=== PATIENT | female | born 1985 | race American Indian/Alaskan Native ===

== ENCOUNTER 2017-12-02 05:50 | Inpatient (IN) | payer MEDICAID ==
[2017-12-02] MEDS ORDERED: STADOL IV PRN (06:22)
[2017-12-02] MEDS ORDERED: ePHEDrine SULFATE IV PRN ×2 (06:22→10:19)
[2017-12-02] MEDS ORDERED: BRETHINE IVP PRN (06:22)
[2017-12-02] MEDS ORDERED: POLYCILLIN/NS 2 GM/100 ML 2 GM/100 ML BAG IV ONE (06:22)
[2017-12-02] MEDS ORDERED: MINERAL OIL PO PRN (06:22)
[2017-12-02] MEDS ORDERED: BRETHINE SUB-Q PRN (06:22)
[2017-12-02] MEDS ORDERED: XYLOCAINE 2% INFILTRATI ONE ×2 (06:22→17:53)
[2017-12-02] MEDS ORDERED: ZOFRAN IV PRN ×2 (06:23→20:26)
[2017-12-02] MEDS ORDERED: LACTATED RINGERS 1,000 ML ONE (06:26)
[2017-12-02] MEDS ORDERED: PITOCin/NS 20 UNIT/1000ML DRIP 20 UNITS/1,000 ML BAG IV SCH (07:00)
[2017-12-02] MEDS: LACTATED RINGERS 1,000 ML IV SCH ×2 (07:18→16:38)
[2017-12-02 07:21] LABS: Hematocrit 31.7 % (30.3-42.9); Hemoglobin 10.2 gm/dl (10.1-14.3); Mean Corpuscular HGB Conc 32 % (30-34); Mean Corpuscular Hemoglobin 28 pg (28-32); Mean Corpuscular Volume 89 fl (79-97); Platelet Count 182 K/mm3 (140-440); Red Blood Count 3.58 M/mm3 (3.65-5.03); Red Cell Distribution Width 15.2 % (13.2-15.2)
--- NOTE | 2017-12-02 10:18 | Anesthesia Consultation ---
Anesthesia Consult and Med Hx Date of service: 12/02/17 - Airway Anesthetic Teeth Evaluation: Good ROM Head & Neck: Adequate Mental/Hyoid Distance: Adequate Mallampati Class: Class II Intubation Access Assessment: Probably Good - Pre-Operative Health Status ASA Pre-Surgery Classification: ASA2 Proposed Anesthetic Plan: Epidural, Spinal - Pulmonary Hx Asthma: No COPD: No Hx Pneumonia: No - Cardiovascular System Hx Hypertension: No - Central Nervous System Hx Seizures: No Hx Psychiatric Problems: No - Endocrine Hx Renal Disease: No Hx End Stage Renal Disease: No Hx Hypothyroidism: No Hx Hyperthyroidism: No - Hematic Hx Anemia: No Hx Sickle Cell Disease: No - Other Systems Hx Alcohol Use: No
[2017-12-02] MEDS ORDERED: NARCAN 2 MG/2 ML IV PRN (10:19)
[2017-12-02] MEDS ORDERED: fentaNYL-BUPIV 2 MCG/ML-0.125% 200 MCG/100 ML BAG EPIDURAL SCH (11:00)
[2017-12-02] MEDS: AMPICILLIN/NS 1 GM/50 ML 1 GM/50 ML BAG IV SCH ×2 (12:15→16:39)
[2017-12-02] MEDS ORDERED: PITOCin/NS 30 UNIT/500ML 30 UNITS/500 ML BAG IV SCH (18:00)
--- NOTE | 2017-12-02 19:40 | History and Physical Report ---
History of Present Illness Date of examination: 12/02/17 Date of admission: 12/02/17 06:32 Chief complaint: I'm having contractions History of present illness: Patient is a 32 year old who presents with complaint of regular contractions at 40.5 weeks with EDC 11/27/2017. Patient's course was compliicated by late presentation to care and in consistent care. All labs have been normal. Past History Past Medical History: no pertinent history Past Surgical History: no surgical history PERSONNEL OFFICER History: herpes Family/Genetic History: none Social history: single - Obstetrical History Expected Date of Delivery: 11/27/17 Actual Gestation: 40 Week(s) 5 Day(s) : 2 Number of Living Children: 1 Medications and Allergies Allergies Allergy/AdvReac Type Severity Reaction Status Date / Time No Known Allergies Allergy Unverified 12/02/17 06:02 Home Medications Medication Instructions Recorded Confirmed Last Taken Type No Known Home Medications [No 12/02/17 12/02/17 Unknown History Reported Home Medications] Active Meds: Active Medications Butorphanol Tartrate (Stadol) 2 mg IV Q2H PRN PRN Reason: Pain , Severe (7-10) Last Admin: 12/02/17 07:17 Dose: 2 mg Ephedrine Sulfate (Ephedrine Sulfate) 10 mg IV Q2M PRN PRN Reason: Hypotension Ephedrine Sulfate (Ephedrine Sulfate) 10 mg IV Q2M PRN PRN Reason: Hypotension Ampicillin Sodium (Ampicillin/Ns 1 Gm/50 Ml) 1 gm in 50 mls @ 100 mls/hr IV Q4HR STONE; Protocol Last Admin: 12/02/17 16:39 Dose: 100 mls/hr Lactated Ringer's (Lactated Ringers) 1,000 mls @ 125 mls/hr IV DIRECT STONE Last Admin: 12/02/17 16:38 Dose: 125 mls/hr Oxytocin/Sodium Chloride (Pitocin/Ns 20 Unit/1000ml Drip) 20 units in 1,000 mls @ 125 mls/hr IV DIRECT STONE Fentanyl/Bupivacaine/Sodium Chlor (Fentanyl-Bupiv 2 Mcg/Ml-0.125%) 200 mcg in 100 mls @ 12 mls/hr EPIDURAL TITR STONE; Protocol Last Admin: 12/02/17 11:24 Dose: 12 mls/hr Oxytocin/Sodium Chloride (Pitocin/Ns 30 Unit/500ml) 30 units in 500 mls @ 4 mls /hr IV TITR STONE; Protocol Last Admin: 12/02/17 18:03 Dose: 4 ml/hr, 4 mls/hr Mineral Oil (Mineral Oil) 30 ml PO QHS PRN PRN Reason: Constipation Naloxone HCl (Narcan 2 Mg/2 Ml) 0.2 mg IV Q5M PRN PRN Reason: Respiratory sedation Ondansetron HCl (Zofran) 4 mg IV Q8H PRN PRN Reason: Nausea And Vomiting Terbutaline Sulfate (Brethine) 0.25 mg SUB-Q ONCE PRN PRN Reason: Hyperstimulation/Hypertonicity Terbutaline Sulfate (Brethine) 0.25 mg IVP ONCE PRN PRN Reason: Hyperstimulation/Hypertonicity Review of Systems All systems: negative Genitourinary: contractions - Vital Signs Vital signs: Vital Signs Temp Pulse Resp BP 98.5 F 95 H 20 109/60 12/02/17 05:57 12/02/17 05:57 12/02/17 05:57 12/02/17 05:57 Temp Pulse Resp BP Pulse Ox 98.4 F 122 H 20 122/63 86 12/02/17 14:09 12/02/17 19:21 12/02/17 05:57 12/02/17 18:51 12/02/17 19:21 - Physical Exam Breasts: Cardiovascular: Regular rate, Normal S1, Normal S2 Lungs: Positive: Clear to auscultation, Normal air movement Abdomen: Positive: normal appearance, soft, normal bowel sounds. Negative: distention, tenderness Vulva: both: normal Vagina: Positive: normal moisture. Negative: discharge Cervix: Negative: lesion, discharge Uterus: Positive: normal size, normal contour Adnexa: both: normal Anus/Rectum: Positive: normal perianal skin, heme negative. Negative: rectal mass, hemorrhoids Extremities: Deep Tendon Reflex Grade: Normal +2 - Obstetrical Cervical Dilatation: 4 Cervical Effacement Percentage: 80 Uterine Contraction Frequency (min): 5 Uterine Contraction Pattern: Regular Uterine Contraction Intensity: Moderate Results Result Diagrams: 12/02/17 06:20 Abnormal lab results 12/02/17 Range/Units 06:20 RBC 3.58 L (3.65-5.03) M/mm3 All other labs normal. Assessment and Plan IUP at 40.5 weeks in active labor. Admit for same. Treat for GBS unavailable at this time. Anticipate .
--- NOTE | 2017-12-02 19:44 | Procedure Note ---
OB Delivery Note - Delivery Date of Delivery: 12/02/17 Surgeon: KACI HUDSON Estimated blood loss: 200cc - Vaginal Delivery presentation: vertex Delivery position: OA Intrapartum events: meconium Delivery induction: none Delivery augmentation: pitocin Delivery monitor: external FHT, external uterine Route of delivery: Delivery placenta: spontaneous Delivery cord: 3 umbilical vessels Episiotomy: none Delivery laceration: 2nd degree Delivery repair: chromic Anesthesia: epidural Delivery comments: Viable male delivered over an intact perineum. was placed on maternal abdomen and bulb suctioned with NICU personnel present. He had spontaneous cry and appeared vigorous. The Apgars were 8 and 9, weight was 7 lbs. 9 oz. The cord was clamped and cut when finished pulsing. Placenta was delivered spontaneously and intact. Second-degree laceration was repaired with 2-0 chromic. There was excellent hemostasis. The patient tolerated the procedure well. - Infant A at 1 minute: 8 at 5 minutes: 9 Gender: Male (7 pounds 9 ounces)
[2017-12-02] MEDS ORDERED: SODIUM CHLORIDE FLUSH SYRINGE 10 ML IV NR (20:26)
[2017-12-02] MEDS ORDERED: DULCOLAX PR PRN (20:26)
[2017-12-02] MEDS ORDERED: PHENERGAN PR PRN (20:26)
[2017-12-02] MEDS ORDERED: BENADRYL PO PRN (20:26)
[2017-12-02] MEDS ORDERED: TUCKS PAD TP PRN (20:26)
[2017-12-02] MEDS ORDERED: TYLENOL PO PRN (20:26)
[2017-12-02] MEDS ORDERED: PHENERGAN PO PRN (20:26)
[2017-12-02] MEDS ORDERED: MILK OF MAGNESIA PO PRN (20:26)
[2017-12-02] MEDS ORDERED: LANSINOH TP PRN (20:26)
[2017-12-02] MEDS: NORCO 5/325 PO PRN (20:57)
[2017-12-02] MEDS: MOTRIN PO SCH (23:20)
[2017-12-03] MEDS: NORCO 5/325 PO PRN ×2 (05:08→14:50)
[2017-12-03] MEDS: MOTRIN PO SCH ×2 (06:18→18:49)
[2017-12-03 08:16] LABS: Hematocrit 29.5 % (30.3-42.9); Hemoglobin 9.6 gm/dl (10.1-14.3)
--- NOTE | 2017-12-03 17:56 | Progress Note ---
Assessment and Plan PPD 1 s/p . Doing well. Patient is requesting discharge on this evening at the 24 hour jorden. Subjective - Subjective Date of service: 12/03/17 Interval history: Patient is a 32 year old who presents with complaint of regular contractions at 40.5 weeks with EDC 11/27/2017. Patient's course was compliicated by late presentation to care and in consistent care. All labs have been normal. Patient reports: appetite normal, voiding normally, pain well controlled, ambulating normally : doing well Objective - Vital Signs Latest vital signs: Vital Signs Temp Pulse Resp BP BP Pulse Ox 12/03/17 16:23 98.8 F 70 20 111/77 98 12/03/17 12:34 98.7 F 82 20 102/60 100 12/03/17 08:00 98.2 F 89 20 109/53 100 12/03/17 04:00 98.6 F 88 20 116/63 12/02/17 21:40 98.9 F 79 20 104/57 12/02/17 21:00 74 99 12/02/17 20:59 78 125/85 12/02/17 20:57 18 12/02/17 20:55 88 99 12/02/17 20:50 87 100 12/02/17 20:37 75 123/73 12/02/17 20:23 83 121/58 12/02/17 19:58 108 H 100 12/02/17 19:53 83 124/71 100 12/02/17 19:50 107 H 151/70 12/02/17 19:43 97 H 141/68 12/02/17 19:40 99.6 F 20 12/02/17 19:21 122 H 86 12/02/17 19:16 103 H 100 12/02/17 19:12 29 L 78 L 12/02/17 19:11 91 H 99 12/02/17 19:06 101 H 100 12/02/17 19:05 82 89 12/02/17 19:01 100 H 99 12/02/17 18:56 100 H 100 12/02/17 18:51 95 H 122/63 100 12/02/17 18:46 107 H 100 12/02/17 18:41 100 H 73 L 12/02/17 18:36 107 H 100 12/02/17 18:31 101 H 100 07/31/18 18:26 116 H 100 12/02/17 18:21 105 H 100 Intake and Output 12/03/17 12/03/17 12/03/17 06:59 14:59 22:59 Intake Total 840 720 Output Total 600 1100 Balance 240 -380 Intake: Oral 840 720 Output: Urine 600 1100 Void 600 1100 Other: Total, Intake Amount 360 240 Total, Output Amount 600 500 # Voids Void 1 1 - Exam Breasts: Present: deferred Cardiovascular: Present: Regular rate, Normal S1, Normal S2 Abdomen: Present: normal appearance, soft, normal bowel sounds Vulva: both: normal Uterus: Present: normal, fundal height below umbilicus Extremities: Present: normal - Labs Labs: Abnormal lab results 12/03/17 Range/Units 07:49 Hgb 9.6 L (10.1-14.3) gm/dl Hct 29.5 L (30.3-42.9) %
--- NOTE | 2017-12-03 17:59 | Discharge Summary ---
Providers - Providers Date of Admission: 12/02/17 06:32 Date of discharge: 12/03/17 Attending physician: KACI HUDSON Primary care physician: KACI HUDSON Hospitalization Reason for admission: active labor Delivery: Laceration: none complications: none Discharge diagnosis: IUP at term delivered [place] baby: male Condition at discharge: Good Disposition: DC-01 TO HOME OR SELFCARE Plan - Discharge Medications Prescriptions: HYDROcodone/APAP 5-325 [[place] 5-325 mg TAB] 2 each PO Q6H PRN #20 tablet PRN Reason: Pain, Moderate (4-6) Ibuprofen [Motrin 600 MG tab] 600 mg PO Q6H #40 tablet - Provider Discharge Summary Activity: routine, no sex for 6 weeks, no heavy lifting 4 weeks, no strenuous exercise Diet: routine Instructions: routine Additional instructions: [] Smoking cessation referral if applicable(refer to patient education folder for contact #) [] Refer to [facility] Booklet Call your doctor immediately for: * Fever > 100.5 * Heavy vaginal bleeding ( >1 pad per hour) * Severe persistent headache * Shortness of breath * Reddened, hot, painful area to leg or breast * Drainage or odor from incision. * Keep incision clean and dry at all times and follow doctor's instructions regarding bathing/showering - Follow up plan Follow up: KACI HUDSON MD [Primary Care Provider] - 6 Weeks
[2017-12-03 22:59] VITALS: BP 107/61
== END 2017-12-03 22:25 | disposition home or self-care (01) | DRG 774 ==
LOC: TRG 05:50 → LD 06:32 → OB 22:04
PROVIDERS: ADMIT Obstetrics & Gynecology; ATTEND Obstetrics & Gynecology
PROC: 10E0XZZ Delivery of Products of Conception, External Approach (ICD-10-PCS; principal; 2017-12-02)
PROC: 0KQM0ZZ Repair Perineum Muscle, Open Approach (ICD-10-PCS; 2017-12-02)
PROC: 3E0R3BZ Introduction of Anesthetic Agent into Spinal Canal, Percutaneous Approach (ICD-10-PCS; 2017-12-02)
PROC: 00HU33Z Insertion of Infusion Device into Spinal Canal, Percutaneous Approach (ICD-10-PCS; 2017-12-02)
DX: O77.0 Labor and delivery complicated by meconium in amniotic fluid (principal); O98.32 Other infections with a predominantly sexual mode of transmission complicating childbirth; O70.1 Second degree perineal laceration during delivery; Z3A.40 40 weeks gestation of pregnancy; Z37.0 Single live birth; A60.00 Herpesviral infection of urogenital system, unspecified
CPT/HCPCS: 36415; 85014; 85018; 85027; 86592; 86850; 86900; 86901; 99211; G0463; J0290; J0595; J2405; J2590; J7120